=== PATIENT | female | born 1945 | race African-American/Black ===

== ENCOUNTER 2019-11-23 02:05 | Inpatient (IN) | payer OTHER ==
[~2019-11-23] VITALS: Ht 170.2 cm; Wt 112.0 kg
[2019-11-23] MEDS ORDERED: DEXTROSE 50% WATER 50ML SYRINGE IV ONE (02:28)
[2019-11-23 03:09] LABS: BASOPHILS % 0.3 % (0.0-2.0); EOSINOPHILS % 0.2 % (0.0-5.0); HEMATOCRIT. 33.5 % (36.0-48.0); LYMPHOCYTES % 28.8 % (20.0-50.0); MEAN CORPUSCULAR HEMOGLOBIN 24.2 pg (28.0-32.0); MEAN CORPUSCULAR VOLUME 73.5 fL (81.0-99.0); MEAN PLATELET VOLUME 7.4 fl (7.4-10.4); MONOCYTES % 9.2 % (2.0-8.0); NEUTROPHILS % 61.5 % (40.0-76.0); PLATELET 258 x1000/uL (130-400); RED BLOOD CELL COUNT 4.56 mill/uL (4.2-5.4); RED CELL DISTRIBUTION WIDTH 16.8 % (11.6-14.6)
[2019-11-23 03:15] LABS: CHLORIDE 106 mEq/L (98-107)
[2019-11-23] MEDS ORDERED: ASPIRIN 325MG TABLET PO ONE (04:45)
[2019-11-23] MEDS ORDERED: NITROGLYCERIN 0.4MG TABLET SL SL PRN (07:00)
[2019-11-23] MEDS ORDERED: MAGNESIUM/ALUMINUM HYDROXIDE/SIMETHICONE 30ML UDC PO PRN (07:00)
[2019-11-23] MEDS ORDERED: ONDANSETRON HCL 4MG/2ML INJ IV PRN (07:00)
[2019-11-23] MEDS ORDERED: GUAIFENESIN 200MG/10ML SUGAR FREE UDC PO PRN (07:00)
[2019-11-23] MEDS ORDERED: DOCUSATE SODIUM 100MG CAPSULE PO PRN (07:00)
[2019-11-23] MEDS ORDERED: CLONIDINE 0.1MG TABLET PO PRN (07:00)
[2019-11-23] MEDS ORDERED: DEXTROSE 50% WATER 50ML SYRINGE IV PRN (07:00)
[2019-11-23] MEDS ORDERED: ZOLPIDEM TARTRATE 5MG TABLET PO PRN (07:00)
[2019-11-23] MEDS ORDERED: TRAMADOL 50MG TABLET PO PRN (07:00)
[2019-11-23] MEDS ORDERED: ACETAMINOPHEN 325MG TABLET PO PRN ×2 (07:00)
[2019-11-23 07:17] LABS: CLARITY URINE CLEAR (CLEAR); COLOR URINE YELLOW (YELLOW); KETONES URINE NEGATIVE (NEGATIVE); LEUKOCYTE ESTERASE URINE NEGATIVE (NEGATIVE); NITRITE URINE NEGATIVE (NEGATIVE); OCCULT BLOOD URINE TRACE (NEGATIVE); PROTEIN URINE 1+ (NEGATIVE); SPECIFIC GRAVITY URINE 1.014 (1.005-1.030); UROBILINOGEN URINE 0.2 E.U./dL (0.2-1.0)
[2019-11-23 07:27] LABS: VITAMIN B12 SERUM 1548 pg/mL (211-911)
[2019-11-23 07:34] LABS: FOLIC ACID (FOLATE) SERUM > 20.00 ng/mL (>5.38)
[2019-11-23] MEDS: INSULIN LISPRO 100 UNITS/ML SUBCUT SCH (08:00)
[2019-11-23] MEDS: BLOOD SUGAR DIAGNOSTIC STRIP TEST SCH (08:00)
[2019-11-23] MEDS ORDERED: FAMOTIDINE 20MG TABLET PO SCH (09:00)
[2019-11-23] MEDS ORDERED: ENOXAPARIN 40MG/0.4ML SYR SUBCUT SCH (09:00)
[2019-11-23] MEDS: FAMOTIDINE 20MG TABLET PO SCH (10:30)
[2019-11-23] MEDS: CLOPIDOGREL 75MG TABLET PO SCH (10:30)
[2019-11-23] MEDS: ZINC SULFATE 220 MG ( 50 ) CAPSULE PO SCH (10:30)
[2019-11-23] MEDS: ASCORBIC ACID 500 MG TABLET PO SCH (11:00)
[2019-11-23 15:35] LABS: CREATINE KINASE 625 IU/L (26-192)
[2019-11-23 15:36] LABS: CREATINE KINASE MB FRACTION 2.1 ng/mL (0.5-3.6)
[2019-11-23] MEDS ORDERED: POTASSIUM CHLORIDE 20MEQ TABLET SR PO NR (18:00)
[2019-11-23 22:25] VITALS: BP 122/68
[2019-11-23 22:30] VITALS: BP 122/68
[2019-11-23 23:19] LABS: CREATINE KINASE 651 IU/L (26-192)
[2019-11-23 23:20] LABS: CREATINE KINASE MB FRACTION < 1.0 ng/mL (0.5-3.6)
[2019-11-24] VITALS: BP 123/67
[2019-11-24] MEDS ORDERED: VIT1CAPS26 MT (01:19)
[2019-11-24 04:00] VITALS: BP 100/59
[2019-11-24 06:43] LABS: CHLORIDE 111 mEq/L (98-107)
[2019-11-24 06:52] LABS: PHOSPHORUS 3.1 mg/dL (2.5-4.9)
[2019-11-24 07:09] LABS: BASOPHILS % 0.2 % (0.0-2.0); HEMATOCRIT. 30.8 % (36.0-48.0); HEMOGLOBIN. 10.3 g/dL (12.0-16.0); LYMPHOCYTES % 36.6 % (20.0-50.0); MEAN CORPUSCULAR HEMOGLOBIN 24.3 pg (28.0-32.0); MEAN CORPUSCULAR VOLUME 72.8 fL (81.0-99.0); MEAN PLATELET VOLUME 7.3 fl (7.4-10.4); MONOCYTES % 9.4 % (2.0-8.0); NEUTROPHILS % 53.8 % (40.0-76.0); PLATELET 281 x1000/uL (130-400); RED BLOOD CELL COUNT 4.24 mill/uL (4.2-5.4); RED CELL DISTRIBUTION WIDTH 16.5 % (11.6-14.6)
[2019-11-24] MEDS: BLOOD SUGAR DIAGNOSTIC STRIP TEST SCH (07:45)
[2019-11-24 08:13] VITALS: BP 109/74
[2019-11-24] MEDS: CLOPIDOGREL 75MG TABLET PO SCH (08:33)
[2019-11-24] MEDS: FAMOTIDINE 20MG TABLET PO SCH (08:33)
[2019-11-24] MEDS: ASCORBIC ACID 500 MG TABLET PO SCH (08:33)
[2019-11-24] MEDS: INSULIN LISPRO 100 UNITS/ML SUBCUT SCH ×2 (08:34→12:50)
[2019-11-24] MEDS: ZINC SULFATE 220 MG ( 50 ) CAPSULE PO SCH (08:37)
[2019-11-24] MEDS ORDERED: BLOOD SUGAR DIAGNOSTIC STRIP TEST SCH (11:45)
[2019-11-24 12:00] VITALS: BP 119/63
[2019-11-24 13:47] VITALS: BP 119/63
== END 2019-11-24 14:55 | disposition home or self-care (01) | DRG 683 ==
LOC: ER 02:05 → 5WST 04:38 → EDBEDREQ 04:55 → EDBEDREQTM 04:55 → ENRESERV 20:02
PROVIDERS: ADMIT Internal Medicine; ATTEND Internal Medicine
DX: N17.0 Acute kidney failure with tubular necrosis (principal); G45.9 Transient cerebral ischemic attack, unspecified; E44.1 Mild protein-calorie malnutrition; E11.649 Type 2 diabetes mellitus with hypoglycemia without coma; E87.6 Hypokalemia; I10 Essential (primary) hypertension; Z68.38 Body mass index [BMI] 38.0-38.9, adult
CPT/HCPCS: 36415; 70551; 71045; 80053; 80061; 81003; 82550; 82553; 82607; 82746; 82962; 83036; 83540; 83550; 83735; 84100; 84484; 85025; 85384; 93005; 93306; 93970; 99285; J1650; J1815